=== PATIENT | female | born 1960 | race Caucasian/White ===

== ENCOUNTER 2024-11-21 09:59 | Outpatient (AMB) | payer OTHER, SELFPAY ==
--- NOTE | 2024-11-21 10:02 | AM.OFFWIN_ITS ---
Intake Vital Signs 11/21/24 10:07 Height 5 ft 2 in Weight 145 lb 6 oz BMI 26.6 BP 118/72 Blood Pressure Location Rt brachial Position Sitting Respiration 13 Pulse 80 Pulse Source Pulse Oximeter Temp 98.2 F Temp Source Oral Pulse Oximetry (%) 96 Oxygen Delivery Method Room Air Intake Visit Reasons: Cough /sinus infection Intake Note: Patient complaining of coughing, sinus, exhausted, and pressure headache x 1 month Patient Tobacco Use Status: Never used Tobacco Mineral Wool Insulation Supervisor Required: No Allergies Penicillins Allergy (Severe, Verified 11/21/24 10:24) Hives Medication List - Last Reconciled 11/21/24 by Carole Byrnes, RUG CLEANER HAND- metoprolol tartrate 25 mg PO BID rosuvastatin 20 mg PO QAM sertraline 150 mg PO DAILY Do you need a note to return to daycare/school/sports/work: No HPI HPI Comments History of Present Illness Details - The patient is a 64-year-old female wi th COPD presenting with cough and sinus congestion. - Symptoms have persisted for a month, i ncluding exhaustion and pressure headaches. - Initial improvement was noted after a course of prednisone Rx by PCP; however, symptoms returned with increased severity. - Current medications include inhalers ( Trelegy and a albuterol), which have not been effective in relieving symptoms. Has tessalon at home, taking w/o effect. - There is no history of fever or chills , and no antibiotics had been prescribed prior to this visit. - The patient is allergic to penicillin and typically requires higher doses of azithromycin to achieve symptom relief. Did not get flu vaccine this year. Physical Exam General: Awake, alert. No apparent distress Eyes: Sclera and conjunctiva clear bilaterally Nose: Nares yellow d/c, turbinates pale and edemaotus,+frontal and maxillary sinus tenderness with palpation bilaterally Ears: Tympanic membranes intact and clear bilaterally Throat: Moist mucosa membrane, pharynx within normal limits Cardiovascular: Regular rate and rhythm Respiratory: coarse ins/exp wheezes throughout, cough w/o distress Discussion Notes I discussed with the patient the likely diagnosis of concurrent sinusitis with an exacerbation of COPD, which would require antibiotic treatment alongside her current inhalers. Given her penicillin allergy, we decided on azithromycin at an adjusted higher dose, which matches her previous response to treatment. I advised continuing prednisone to manage airway inflammation, providing specific instructions for the dose. The importance of adhering to inhaler regimen was emp hasized, and I advised discontinuing ineffective medications. The patient was informed to seek further medical advice if symptoms worsen or fail to improve within 48 hours. She agreed with the plan. Assessment and Plan 1. Chronic Obstructive Pulmonary Disease (COPD): The patient's COPD is assessed to be exacerbated, likely due to sinusitis complications. Continued use of her inhalers is essential, alongside a course of prednisone to reduce inflammation. 2. Sinusitis: Given the patient's sympto ms and previous effective treatment responses, a diagnosis of sinusitis with prescribed azithromycin at a higher dose is appropriate, considering her penicillin allergy. 3. Sinus Cephalgia: Associated with sinu sitis, the patient's headache symptoms are expected to improve with antibiotic therapy. Ineffective cough treatments should be discontinued. Patient Instructions - Take azithromycin at the prescribed hi gher dosage for seven days. - Continue prednisone 1 tablet daily wit h food for five days. - Use inhalers consistently as prescribe d. - Discontinue any ineffective cough medi cations (tessalon) - Return for further evaluation if sympt oms do not improve in 48 hours or worsen at any time. Consent The patient provided consent for the treatment plan, which includes azithromycin and prednisone use. I discussed the risks and benefits of azithromycin in light of her allergy to penicillin, highlighting the effectiveness of the higher dosage. Alternatives and return precautions were communicated, with the patient expressing understanding and agreement with the proposed course of action. Patient was informed and verbally consented to the use of an ambient scribe for clinic note documentation during this visit. [facility] Social History Patient Tobacco Use Status: Never used Tobacco Physical Exam Vital Signs: Last Vital Signs Temp 98.2 F 11/21/24 10:07 Pulse 80 11/21/24 10:07 Resp 13 11/21/24 10:07 BP 118/72 11/21/24 10:07 Pulse Ox 96 11/21/24 10:07 Oxygen Delivery Method Room Air 11/21/24 10:07 BMI result Body Mass Index 26.6 Assessment & Plan Assessment & Plan (1) COPD (chronic obstructive pulmonary disease): Code(s): J44.9 - Chronic obstructive pulmonary disease, unspecified Qualifiers: COPD type: COPD with acute exacerbation Qualified Code(s): J44.1 - Chronic obstructive pulmonary disease with (acute) exacerbation (2) Acute bacterial sinusitis: Code(s): J01.90 - Acute sinusitis, unspecified; B96.89 - Other specified bacterial agents as the cause of diseases classified elsewhere Plan . Medications: New azithromycin 500 mg PO DAILY 7 days 7 tabs 0RF prednisone 50 mg PO DAILY 5 days 5 tabs 0RF Coding Level of Care Code Est Pt Level 4 (99418) Diagnoses Chronic obstructive pulmonary disease with acute exacerbation J44.1 COPD type: COPD with acute exacerbation Acute bacterial sinusitis J01.90; B96.89
[2024-11-21 10:07] VITALS: BP 118/72; PULSE 80; RESP 13; TEMP 36.8; O2SAT 96; BMI 26.6
--- OUTSIDE RECORDS SUMMARY | 2024-11-21 11:34 | XMS_ITS | Encounter Summary ---
Author Organization [employer] Address [address] [place] [address] Care Team Providers Care Nuclear Licensing Engineer Name Role Phone Autumn Burns Primary Care Provider Brittany Jernigan DO Primary Care Provider [phone] Reason for Visit * Reason Comments Med Refill Encounter Details Date Type Department Care Team (Late st Contact Info) Description 02/12/2024 Refill [place] [facility] [address] [place] [address] Sammie Gonzalez FNP Pure hypercholesterolemia, unspecified Social History Tobacco Use Types Packs/Day Years Used Date Smoking Tobacco: Every Day Cigarettes 0.3 49.4 Started: 1972; Last attempted to quit: 02/14/2022 Smokeless Tobacco: Never Comments:Quit for a year and started smoking again 1 or 2 a day prn Alcohol Use Standard Drinks/Week Comments Not Currently 0 (1 standard drink = 0.6 oz pur e alcohol) quit 35 years Housing Stability Answer Date Recorded What is your housing situation today? Not on ginny e 09/20/[address] you li ve. Do you have problems with any of the following? None of the above 09/20/2023 Food Insecurity Answer Date Recorded Within the past 12 months, y ou worried that your food would run out before you got money to buy more: Never True 07/24/2023 Within the past 12 months,th e food you bought just didn't last and you didn't have enough money to get more: Never True 07/2023 Transportation Answer Date Recorded In the past 12 months, has l ack of transportation kept you from medical appts, meetings, work or from getting things needed for daily living? No 07/24/2023 Utilities Answer Date Recorded In the past 12 months, has t he electric, gas, oil or water company threatened to shut off services in your home? No 07/24/2023 Depression Answer Date Recorded Patient Health Questionnaire-2 Score 0 10/22/2022 Comments Unknown Sex and Gender Information Value Date Recorded Sex Assigned at Female 09/04/2022 11:58 AM EST Legal Sex Female 8:40 PM EDT Gender Identity Female 09/04/2022 11:58 AM EST Sexual Orientation Straight 10/20/2022 12 :37 PM EST documented as of this encounter Plan of Treatment Not on file documented as of this encounter Visit Diagnoses Diagnosis Pure hypercholesterolemia, unspecified documented in this encounter Care Teams Nuclear Licensing Engineer Relationship Specialty Start Date End Date Autumn Burns PA PCP - General Family Medicine 08/24/23 03/19/24 Brittany Pearson DO [address] [place] [id number] PCP - General Family Medicine 03/20/24 documented as of this encounter
--- OUTSIDE RECORDS SUMMARY | 2024-11-21 11:34 | XMS_ITS | Encounter Summary ---
Author Organization [employer] Address [address] [place] [address] Care Team Providers Care Irrigationist Name Role Phone Brittany Pearson DO Primary Care Provider Reason for Visit * Reason Onset Date Comments Flu Symptoms 10/16/2024 Encounter Details Date Type Department Care Team (Late st Contact Info) Description 10/16/2024 Telephone [place] [facility] [address] [place] [address] Brittany Pearson DO [address] [place] [address] Flu Symptoms Social History Tobacco Use Types Packs/Day Years Used Date Smoking Tobacco: Some Days Cigarettes 0.3 49.4 Started: 1972; Last attempted to quit: 02/14/2022 Passive Smoke Exposure: Current Smokeless Tobacco: Never Comments:Quit for a year and started smoking again 1 or 2 a day prn Alcohol Use Standard Drinks/Week Comments Not Currently 0 (1 standard drink = 0.6 oz pur e alcohol) quit 35 years Alcohol Answer Date Recorded How often do you have a drink containing alcohol ? 0 03/20/2024 How many drinks containing a lcohol do you have on a typical day when you are drinking? 0 03/20/2024 How often do you have six or more drinks on one occasion? 0 03/20/2024 Housing Stability Answer Date Recorded What is your housing situation today? I have nigel ellis 03/20/[address] you li ve. Do you have problems with any of the following? None of the above 03/20/2024 Food Insecurity Answer Date Recorded Within the past 12 months, y ou worried that your food would run out before you got money to buy more: Never True 03/20/2024 Within the past 12 months,th e food you bought just didn't last and you didn't have enough money to get more: Never True 04/2024 Transportation Answer Date Recorded In the past 12 months, has l ack of transportation kept you from medical appts, meetings, work or from getting things needed for daily living? No 03/20/2024 Intimate Partner Violence Answer Date R ecorded Within the last year, have y ou been afraid of your partner or ex-partner? 2 03/20/2024 Within the last year, have y ou been humiliated or emotionally abused in other ways by your partner or ex-partner? 2 Within the last year, have y ou been kicked, hit, slapped, or otherwise physically hurt by your partner or ex-partner? 2 03/20/2024 Within the last year, have y ou been raped or forced to have any kind of sexual activity by your partner or ex-partner? 2 03/20/2024 Utilities Answer Date Recorded In the past 12 months, has t he electric, gas, oil or water company threatened to shut off services in your home? No 03/20/2024 Depression Answer Date Recorded Patient Health Questionnaire-2 Score 0 03/20/2024 Internet Access Answer Date Recorded Internet Access Q1 Yes 05/14/2024 Internet Access Q2 Not on file 05/14/2024 Comments No Sex and Gender Information Value Date Recorded Sex Assigned at Female 09/04/2022 11:58 AM EST Legal Sex Female 8:40 PM EDT Gender Identity Female 09/04/2022 11:58 AM EST Sexual Orientation Straight 10/20/2022 12 :37 PM EST Occupation Industry Job Start Date Job End Date Retired Not on file Not on file Not on file documented as of this encounter Miscellaneous Notes * Telephone Encounter - Mitra HIRO Santiago - 11/20/2024 2:44 PM EDT Patient seen early October with similar symptoms. Patient states she did feel a little better after taking prednisone and tessalon perles. Patient states that shortly after, she was busy with moving. Patient currently c/o nasal/head congestion. Patient c/o cough/wheezing, slight intermittent headache and ear pain on Left side. Patient states nasal drainage is clear, denies facial pain or pressure. Cough is mainly at night and rising in am. Patient states tessalon is no longer effective. Apap for headaches and nebulizer for wheezing with some effect. No fever noted, no recent sick contacts. Advised good fluid intake, sleep with HOB elevated and humidifier at night. Appointment scheduled with provider to [facility]. Patient will arrive 15 mins early for testing. Patient in agreement with plan. * Telephone Encounter - Tamie Lloyd - 11/20/2024 2:08 PM EDT Patient called stating I???m still not better, I still have the congestion and I think it???s going up into my sinuses now, I went to urgent care but they won???t take my insurance there, the symptoms are more intense now in the sinuses, I'm more wiped out, I'm doing my nebulizer so I'm bringing up my mucus but I don't know what else to do. Patient states she would like a call back with advice and if she should book an appointment, okay to leave detailed message on voicemail. Thank you! * Telephone Encounter - Miracle Bob LPN - 10/16/2024 11:47 AM EST Spoke with pt. She does not feel her symptoms are bad enough to require urgent care. She is comfortable waiting for her appointment tomorrow. * Telephone Encounter - Miracle Bob LPN - 10/16/2024 11:14 AM EST Left message for pt to call back. * Telephone Encounter - Connie Ruiz - 10/16/2024 11:03 AM EST Patient calling reporting sick symptoms. Symptom onset date: 10/03 Symptoms include: cough, shortness of breath, fatigue, and congestion or runny nose Patient denies sick contacts. Testing performed at home: covid test: negative on 10/09 In-person visit with provider scheduled for 10/17 with PSN. Telephone encounter routed to nursing triage for review; nursing to review and sign encounter if timeline is appropriate or modify plan if clinically necessary. Preferred phone number confirmed, ending in [phone]. If necessary, patient confirms that it is ok fornursing to leave detailed voicemail on this number. Patient to use sick door and arrive 15 minutes early documented in this encounter Plan of Treatment Not on file documented as of this encounter Visit Diagnoses Not on filedocumented in this encounter Care Teams Irrigationist Relationship Specialty Start Date End Date Brittany Pearson DO [address] [place] [phone] PCP - General Family Medicine 03/20/24 documented as of this encounter
--- OUTSIDE RECORDS SUMMARY | 2024-11-21 11:34 | XMS_ITS | Encounter Summary ---
Author Organization [employer] Address [address] [place] [address] Care Team Providers Care Roll Winder Name Role Phone Brittany Pearson DO Primary Care Provider [phone] Reason for Visit * Reason Onset Date Comments Med Refill 11/13/2024 Encounter Details Date Type Department Care Team (Late st Contact Info) Description 11/13/2024 Refill [place] [facility] [address] [place] [address] Brittany Pearson DO [address] [place] [address] Active asthma Social History Tobacco Use Types Packs/Day Years [...] encounter Miscellaneous Notes * Telephone Encounter - Terra Cesar, RMA - 11/13/2024 5:08 PM EST Images from the original note were not included. Jerica Davis [facility] (supporting [employer])5 days ago Refills have been requested for the following medications: albuterol (Ventolin HFA) 108 (90 Base) MCG/ACT inhaler [Sammie Gonzalez] Preferred pharmacy: [id number] - [place], [place] - [address] [place] [address] Delivery method: Pickup documented in this encounter Plan of Treatment Not on file documented as of this encounter Visit Diagnoses Diagnosis Active asthma Unspecified asthma documented in this encounter Care Teams Roll Winder Relationship Specialty Start Date End Date Brittany Pearson DO [address] [place] [id number] PCP - General Family Medicine 03/20/24 documented as of this encounter
--- OUTSIDE RECORDS SUMMARY | 2024-11-21 11:34 | XMS_ITS | Encounter Summary ---
Author Organization [employer] Address [address] [place] [address] [address] [place] [address] Care Team Providers Care Application Processor Name Role Phone Sue Mann Primary Care Provider Un available Autumn Burns Primary Care Provider Brittany Jernigan DO Primary Care Provider [phone] Encounter Details Date Type Department Care Team (Late st Contact Info) Description 12/14/2022 Orders Only [facility] [address] [place] [address] Provider, MD Rudi Social History Tobacco Use Types Packs/Day Years Used Date Smoking Tobacco: Former Cigarettes 0.5 49.4 1 973 - 02/14/2022 Smokeless Tobacco: Never Alcohol Use Standard Drinks/Week Comments Not Currently 0 (1 standard drink = 0.6 oz pur e alcohol) quit 35 years Depression Answer Date Recorded Patient Health Questionnaire-2 Score 0 10/22/2022 Comments Unknown Sex and Gender Information Value Date Recorded Sex Assigned at Female 09/04/2022 11:58 AM EST Legal Sex Female 8:40 PM EDT Gender Identity Female 09/04/2022 11:58 AM EST Sexual Orientation Straight 10/20/2022 12 :37 PM EST COVID-19 Exposure Response Date Recorded In the last 10 days, have yo u been in contact with someone who was confirmed or suspected to have Coronavirus/COVID-19? No / Unsure 12/12/2022 8:00 AM EDT documented as of this encounter Plan of Treatment Not on file documented as of this encounter Procedures Procedure Name Priority Date/Time Associated Diagnosis Comments HM COLONOSCOPY Routine 12/14/2022 documented in this encounter Results * Hm Colonoscopy (12/14/2022) us Historical Provider HEALTH MAINTENANCE Final Result documented in this encounter Visit Diagnoses Not on filedocumented in this encounter Care Teams Application Processor Relationship Specialty Start Date End Date Sue Mann FNP PCP - General Family Medicine 09/18/22 08/23/23 Autumn Burns PA PCP - General Family Medicine 08/24/23 03/19/24 Brittany Pearson DO [address] [place] [id number] PCP - General Family Medicine 03/20/24 documented as of this encounter
--- OUTSIDE RECORDS SUMMARY | 2024-11-21 11:34 | XMS_ITS | Clinical Summary ---
Author Organization [employer] Address [address] [place] [address] [address] [place] [address] Care Team Providers Care Experimental Outboard Motors Mechanic Name Role Phone Brittany Pearson DO Primary Care Provider [phone] Allergies Active Allergy Reactions Criticality Noted Date Comments Atorvastatin Rash Low 09/18/2022 Penicillins 09/04/2022 Sulfadiazine Hives 09/04/2022 Medications diphenhydrAMIN E-APAP, sleep, (TYLENOL PM EXTRA STRENGTH PO) Take 1 tablet by mouth if needed each day. Active loratadine-pse udoephedrine ER (Claritin-D 24 Hour) 10-240 MG 24 hr tablet Take 1 tablet by mouth in the morning. Active ascorbic acid (Vitamin C) 1000 MG tablet Take 1 tablet by mouth in the morning. Active metoprolol tartrate (Lopressor) 25 MG tablet Take 25 mg by mouth. 01/09/20 23 Active Trelegy Ellipta 100-62.5-25 MCG/ACT aerosol powder INHALE 1 PUFF DAILY AT THE SAME TIME EVERY DAY 11/25/19 24 Active rosuvastatin (Crestor) 20 MG tabletIndicati ons:Pure hypercholester olemia, unspecified TAKE 1 TABLET BY MOUTH EVERY DAY IN THE MORNING 90 tablet 1 02/14/20 24 Active sertraline (Zoloft) 100 MG tabletIndicati ons:Anxiety Take 0.5 tablets (50 mg) by mouth Once per day for 14 days, THEN 1 tablet (100 mg) Once per day for 14 days, THEN 1.5 tablets (150 mg) Once per day. 111 tablet 08/30/20 24 2024 Active ipratropium-al buterol (Duo-Neb) 0.5-2.5 mg/3 mL nebulizer solutionIndica tions:Active asthma Take 3 mL by nebulization every 6 (six) hours. 180 mL 11 10/11/19 25 2025 Active nicotine polacrilex (Nicorette) 2 MG gumIndications :Cigarette nicotine dependence with nicotine-induc ed disorder CHEW 1 PIECE OF GUMEVERY 2 HOURS NEEDED FOR 12 WEEKS DO NOT SWALLOW 100 each 11/09/19 Active albuterol (Ventolin HFA) 108 (90 Base) MCG/ACT inhalerIndicat ions:Active asthma Inhale 1 puff every 4 (four) hours if needed for wheezing or shortness of breath. 18 g 2 11/14/19 25 2024 Active albuterol (Ventolin HFA) 108 (90 Base) MCG/ACT inhalerIndicat ions:Active asthma INHALE 1 PUFF BY MOUTH EVERY 4 HOURS NEEDED FOR WHEEZE OR FOR SHORTNESS OF BREATH 18 g 2 06/04/20 23 2024 Discontinued(R eorder (will not trigger notification to Pharmacy)) benzonatate (Tessalon) 100 MG capsuleIndicat ions:Acute cough,Upper respiratory infection, acute Take 1 capsule (100 mg) by mouth if needed in the morning, at noon, and at bedtime for cough. Do not crush or chew. 42 capsule 1 10/17/19 25 2024 predniSONE (Deltasone) 20 MG tabletIndicati ons:Acute cough,Upper respiratory infection, acute Take 1 tablet (20 mg) by mouth 3 times daily for 5 days, THEN 1 tablet (20 mg) 2 times daily for 5 days, THEN 1 tablet (20 mg) Once per day for 5 days. 30 tablet 10/17/19 25 2024 nicotine polacrilex (Nicorette) 2 MG gumIndications :Cigarette nicotine dependence with nicotine-induc ed disorder CHEW 1 PIECE OF GUMEVERY 2 HOURS NEEDED FOR 12 WEEKS DO NOT SWALLOW 100 each 10/18/19 25 2024 Discontinued Active Problems Problem Noted Date Diagnosed Date Acute cough 10/17/2024 Upper respiratory infection, acute 10/17/2024 Generalized pruritus 03/20/2024 Assessment & Plan (03/20/2024 4:29 PM EDT): No rash to explain symptoms Labs as below Sleep apnea 09/16/2023 Assessment & Plan (09/16/2023 10:27 AM EST): States she snores at night; her partner has told her. Has been having disordered sleep, wakes up almost nightly as well. Has not had a sleep study done yet; she cancelled the appt. I have put a referral in; we will try to get her one at home. Sleep disturbance 10/22/2022 Assessment & Plan (10/22/2022 2:47 PM EST): Likely in part due to cervical spine issues. Uses Tylenol PM with good effect and declines trial of any other meds; tolerates this well and takes as needed. Aware of potential side effects from sleep aid and will monitor for nay new issues. RTC as needed. SVT (supraventricular tachycardia) 10/22/2022 Assessment & Plan (03/20/2024 4:23 PM EDT): Stable on metoprolol Assessment & Plan (10/23/2022 6:32 AM EST): Discussed treatment options such as beta frieda or referral to cardiology for further eval and treatment given that she is symptomatic with palpitations. She states she has been living with these papitations for years and they are tolerable without significant concomitant symptoms; declines medical therapies unless she has to and declines cards referral at present. RTC precautions reviewed as well as when to seek emergency medical attention. Will continue to reeval. Fibromyalgia 08/31/2022 Assessment & Plan (04/28/2024 2:20 PM EDT): Discussed multiple options for pain management. - will pursue approval for massage therapy as this has the potential to improve fibromyalgia - Will start duloxetine for pain as well as covering her anxiety. Discussed cross-taper with sertraline. History of bronchitis 08/31/2022 Active asthma 08/31/2022 Anxiety 08/31/2022 Cervical disc disorder with myelopathy Assessment & Plan (03/20/2024 4:28 PM EDT): Cervical disc disease s/p multiple surgeries with worsening pain and upper extremity radicular symptoms Refractory to daily home stretches/exercises and PT 12/24/23 - 01/16/24 Stopped PT d/t injury Advised that given radiculopathy and lack of improvement MRI is recommended to evaluate for nerve root impingement, after which she will need to follow up with neurosurgery and/or pain management Flexeril ineffective; trial methocarbamol as needed at night to aid with sleep Assessment & Plan (11/17/2023 12:28 PM EST): Patient presents today with ongoing cervical spine and right shoulder pain. Has had three disc replacements in the past in two different surgeries. No rashes noted. No obvious injuries/abnormal movements. No new changes to daily routine. Was goofing around with her grandchildren the other day. Does continue to be able to perform her daily activities without difficulty. She has used Tylenol and Flexeril, Flexeril provided no relief but Tylenol has been working well. PE revealed TTP over the cervical spine and paraspinal muscles, as well as diffusely over the right shoulder. Range of motion limited with head rotation to the right, but intact in other planes. Right shoulder ROM intact. Referred to PT, ordered cervical spine and right shoulder x-rays, and sent Meloxicam for one week to use once daily as needed. Discussed red flag s/s to go to the ER. Follow up as needed. Assessment & Plan (10/22/2022 2:45 PM EST): Dr Davenport will not see pt to est care; will send TE to referrals regarding finding another provider for her to see. Pt agreeable. Paresthesia of arm 08/31/2022 Assessment & Plan (10/22/2022 2:45 PM EST): As above. High cholesterol 08/31/2022 Assessment & Plan (03/20/2024 4:29 PM EDT): On rosuvastatin 20 mg daily Assessment & Plan (09/16/2023 10:28 AM EST): Ordered lipid panel for today. Will continue with current dose of Crestor if lipid panel is normal. Assessment & Plan (10/23/2022 6:35 AM EST): LDL recently at 106, has been lower in the past. Tolerating statin and reports compliance. Encouraged efforts to improve diet and activity to help drive LDL down further; HDL elevated and cardioprotective so will recheck before next visit and readdress as needed if remains elevated. Aware LDL goal is less than 100. Declines further nutritional support. . Stage 3 chronic kidney disease 08/31/2022 Assessment & Plan (03/20/2024 4:24 PM EDT): Last labs Cr 1.0 egfr 60. Due for repeat Assessment & Plan (10/23/2022 6:34 AM EST): No underlying risk factors except for h/o NSAID use which she currently denies. Advised proper hydration, mineralization of potential for comorbidities that may also negatively impact kidney function. Pt declines nephrology referral requesting continued monitoring but is amenable to referral if kidney function declines further. Will continue to monitor. COPD with acute exacerbation 08/31/2022 Assessment & Plan (03/20/2024 4:22 PM EDT): Mild to moderate with intermittent symptoms of wheezing Encouraged to continue working on tobacco cessation Following with pulmonology Assessment & Plan (09/16/2023 10:27 AM EST): Ongoing. Followed by Dr Seay. State she does not believe that the Breo is working. Has a follow up with Dr Seay but does not know what date at this point. Assessment & Plan (10/22/2022 2:48 PM EST): Stable with resolution of sinus symptoms; continue current plan. Contact info given for fretted instrument repairer so she may call to schedule appt to est care. Ulcerative colitis 08/31/2022 Assessment & Plan (03/20/2024 4:23 PM EDT): History of ulcerative colitis without symptoms or known active lesions. Overweight (BMI 25.0-29.9) 08/31/2022 Assessment & Plan (03/20/2024 4:32 PM EDT): Patient interested in weight management program History of alcohol abuse 08/31/2022 Nicotine dependence with nicotine-induced disord er 08/31/2022 Assessment & Plan (03/20/2024 4:29 PM EDT): Encouraged to continue cessation efforts Assessment & Plan (09/16/2023 10:29 AM EST): States she is down to 5 cigs/day. States she is continuing to want to quit and the nicotine gum helps. We have reordered it with refills. We are encouraging her to quit. Former smoker 08/31/2022 Assessment & Plan (10/22/2022 2:48 PM EST): Remains abstinent. Osteopenia 08/31/2022 Resolved Problems Problem Noted Date Diagnosed Date Resolved Date Osteoarthritis 08/31/2022 08/31/2022 Smoker 08/31/2022 08/31/2022 Encounters Date Type Department Care Team Description 11/21/[address] [address] Brittany Pearson DO Care Coordination 11/13/[address] [address] Brittany Pearson DO Active asthma 11/09/[address] [address] Brittany Pearson DO Cigarette nicotine dependence with nicotine-induced disorder 10/17/2024 9:20 AM EST Office Visit [address] [address] Mitra Vigil FNP-C Upper respiratory infection, acute (Primary Dx); Acute cough; COPD with acute exacerbation (CMS/HCC) 10/17/2024 Refill [facility] [address] [place] [address] Brittany Pearson, DO Cigarette nicotine dependence with nicotine-induced disorder 10/16/2024 Telephone [facility] [address] [place] [address] Brittany Pearson, DO Flu Symptoms 10/10/2024 Telephone [facility] [address] [place] [address] Brittany Pearson, DO from Last 3 Months Immunizations Name Administration Dates Next Due Influenza Injectable Quadriv alant Preservative Free IIV4 MDCK 05/25/2019 Influenza injectable quadriv alent preservative free 06/02/2018,12/30/2017,06/29/2016 Influenza, IIV3, injectable 06/25/2020, 8 Pneumococcal Conjugate PCV 13 06/25/2020 TD (adult), 2 Lf tetanus tox oid, preservative free, adsorbed 09/13/2013 Zoster, Recombinant 05/17/2020,06/13/2019 Social History Tobacco Use Types Packs/Day Years Used Date Smoking Tobacco: Some Days Cigarettes 0.3 49.4 Started: 1972; Last attempted to quit: 02/14/2022 Passive Smoke Exposure: Current Smokeless Tobacco: Never Tobacco Cessation:Ready to Q uit: Not Asked; Counseling Given: Not Answered Comments:Quit for a year and started smoking [...] the past 12 months, has t he ANPI, gas, oil or water [employer] threatened to shut off services in your [...] file Not on file Not on file Last Filed Vital Signs Vital Sign Reading Time Taken Comments Blood Pressure 123/90 10/17/2024 9:29 AM EST Pulse 86 10/17/2024 9:29 AM EST Temperature 36.9 ??C (98.5 ??F) 10/17/2024 9:29 AM ES T Respiratory Rate 16 12/12/2022 8:14 AM EDT Oxygen Saturation 96% 10/17/2024 9:29 AM EST Inhaled Oxygen Concentration - - Weight 64.4 kg (142 lb) 10/17/2024 9:29 AM EST Height 157.5 cm (5' 2 ) 10/17/2024 9:29 AM EST Body Mass Index 25.97 10/17/2024 9:29 AM EST Plan of Treatment Health Maintenance Due Date Last Done Comments CT Colonography 1960 FIT DNA/Cologuard 1960 FIT 1960 FOBT 1960 HIV Screening 1960 Sigmoidoscopy 1960 Hepatitis C Screening 1978 Pap Smear 1981 Cervical Cancer Screening 1990 HPV/Cotest 1990 DTaP/Tdap/Td Vaccines (1 - Tdap) 09/14/2013 09/13/2013 Dental Oral Exam 09/12/2016 03/12/2016, 01/12/2014 Dental Prophylaxis 01/22/2017 07/24/2016 RSV Patients and Patients Aged 60 years or older (1 - Risk 60-74 years 1-dose series) 2020 Pneumococcal Vaccine: 50+ Years (2 of 2 - PPSV23) 08/20/2020 06/25/2020 COVID-19 Vaccine ( - 2023- season) 2024 Influenza Vaccine (#1) 2024 , 05/25/2019, 06/16/2018, Additional history exists Dental X-Ray: Bitewings 02/02/2025 02/02/20 24, 03/12/2016, 01/12/2014 Alcohol/Substance Use Screening 03/20/2025 03/20/2024 Depression Screening 03/20/2025 03/20/2024, 03/20/20 24 SDOH Screening 03/20/2025 03/20/2024 Tobacco Screening 10/17/2025 10/17/2024 Mammogram 05/23/2026 05/23/2024, 04/14/2024 Dental X-Ray: Full Mouth 02/02/2027 02/02/2024, 0510/2013 Lipid Panel 09/16/2028 09/16/2023, 09/15, 06/30/2022, Additional history exists Colonoscopy 12/14/2032 12/14/2022 Colorectal Cancer Screening 12/14/2032 Zoster Vaccines Completed 05/17/2020, 06/13/2019 HIB Vaccines Aged Out No longer eligi ble based on patient's age to complete this topic HPV Vaccines Aged Out No longer eligi ble based on patient's age to complete this topic Hepatitis A Vaccines Aged Out No long er eligible based on patient's age to complete this topic Hepatitis B Vaccines Aged Out No long er eligible based on patient's age to complete this topic IPV Vaccines Aged Out No longer eligi ble based on patient's age to complete this topic Meningococcal Vaccine Aged Out No jane geraldine eligible based on patient's age to complete this topic RSV under 20 months Aged Out No longe r eligible based on patient's age to complete this topic Rotavirus Vaccines Aged Out No longer eligible based on patient's age to complete this topic Procedures Procedure Name Priority Date/Time Associated Diagnosis Comments POCT INFLUENZA A/B Routine 10/17/2024 12 :21 PM EST Acute cough POCT RAPID COVID ANTIGEN Routine 10/17/2024 12:21 PM EST Acute cough BI MAMMOGRAM DIAGNOSTIC RIGHT Routine 05/23/2024 1:51 PM EDT Abnormal mammogram of right breast INTRAORAL - COMPLETE SERIES OF RADIOGRAPHIC IMAGES Routine 02/02/2024 10:00 AM EDT LIPID PANEL, STANDARD Routine 09/16/2023 9:56 AM EST High cholesterol HM COLONOSCOPY Routine 12/14/2022 PROPHYLAXIS - ADULT Routine 07/24/2016 1 2:00 AM EST PERIODIC ORAL EVALUATION - ESTABLISHED PATIENT Routine 03/12/2016 12:00 AM EDT from Last 3 Months or Most Recently Relevant to Health Maintenance Results * POCT Rapid COVID Ag (10/17/2024 12:21 PM EST) Rapid COVID Ag Negative Swab 10/17/2024 12:2 1 PM EST Mitra Cook DISTRIBUTOR OPERATOR-C POINT OF CARE TEST ENTER/EDIT ORDERABLES Final Result * POCT Influenza A/B manually resulted (10/17/2024 12:21 PM EST) Rapid Influenza A Ag Negative Negative, Indeterminate Rapid Influenza B Ag Negative Negative, Indeterminate Swab 10/17/2024 12:2 1 PM EST Mitra Cook DISTRIBUTOR OPERATOR-C POINT OF CARE TEST ENTER/EDIT ORDERABLES Final Result * Mammogram Diagnostic Right (05/23/2024 1:51 PM EDT) Anatomical Region Laterality Modality Breast Right Mammography 05/23/2024 1:51 PM EDT Narrative 05/23/2024 2:24 PM EDT PROCEDURE: MM Digital Mammo Unilat Right INDICATION: Abnormal screening. Single view asymmetry right breast. Maternal history of breast cancer at 54. COMPARISON: Back to 06/17/2021. TECHNIQUE: Full field RIGHT digital ML and spot compression CC 3D tomosynthesis. Computer-aided detection (CAD) was utilized in the interpretation of this study. DENSITY: There are scattered areas of fibroglandular density. FINDINGS: Single view asymmetry effaces on spot compression imaging and is not visualized on the other views. IMPRESSION: No suspicious findings. RECOMMENDATION: Annual mammographic screening BI-RADS: 1 (Negative) Lay letter mailed to patient WSN: [id number] Ordering Physician: Brittany Pearson Dictated By: ?Herbie Han MD Dictated Date/Time: ?05/23/24 2:21 pm Reviewed By: ?Hebrie Han MD Signed By: ? Herbie Han MD Signed Date/Time: ? 05/23/24 2:21 pm Transcribed By: ? CSB Manager Video Games Date/Time: ? 05/23/24 2:18 pm Birads: Procedure Note [place], Image - 05/23/2024 PROCEDURE: MM Digital Mammo Unilat Right INDICATION: Abnormal screening. Single view asymmetry right breast. Maternal history of breast cancer at 54. COMPARISON: Back to 06/17/2021. TECHNIQUE: Full field RIGHT digital ML and spot compression CC 3Dtomosynthesis. Computer-aided detection (CAD) was utilized in the interpretation of thisstudy. DENSITY: There are scattered areas of fibroglandular density. FINDINGS: Single view asymmetry effaces on spot compression imaging and isnot visualized on the other views. IMPRESSION: No suspicious findings. RECOMMENDATION: Annual mammographic screening BI-RADS: 1 (Negative) Lay letter mailed to patient WSN: [id number] Ordering Physician: Brittany Pearson Dictated By: Herbie Han MD Dictated Date/Time: 05/23/24 2:21 pm Reviewed By: Herbie Han MD Signed By: Herbie Han MD Signed Date/Time: 05/23/24 2:21 pm Transcribed By: CSB Manager Video Games Date/Time: 05/23/24 2:18 pm Birads: Brittany Pearson DO IMG BI PROCEDURES Final Result * (ABNORMAL) Lipid panel (09/16/2023 9:56 AM EST) Cholesterol, Total 202(H) (<200) MG/DL [facility] Triglyceride (mg/dL) in Serum/Plasma 125 (<150) MG/DL [facility] HDL Cholesterol 80 (>39) MG/DL [facility] LDL Cholesterol, Calculated 97 (0-130) MG/DL [facility] Non HDL Chol. (LDL+VLDL) 122 (<160) MG/DL [facility] Comment: Testing performed or reported by [facility], a Service of [facility], [address] [place] [address] Yevgeniy Man MD, Nail Assembly Machine Operator [facility]# [id number] Blood Venous blood specimen / Unknown 09/16/2023 9:56 AM EST 09/16/2023 9:57 AM EST Autumn CALVERT LAB BLOOD ORDERABLES Final Resul t [facility] [address] [place] [address] * Hm Colonoscopy (12/14/2022) Historical Provider HEALTH MAINTENANCE Final Result from Last 3 Months or Most Recently Relevant to Health Maintenance Insurance [facility] C3 DENTAL-[facility] MEDICAID STAND ADULT Care Teams Experimental Outboard Motors Mechanic Relationship Specialty Start Date End Date Brittany Pearson DO [address] [place] [id number] PCP - General Family Medicine 03/20/24
--- OUTSIDE RECORDS SUMMARY | 2024-11-21 11:34 | XMS_ITS | Patient Health Record ---
Author Organization Rickey Chanel MD Address [address] [place] [address] [place] [id number] Care Team Providers Care Erp Engineer Name Role Phone Dr. Pilo Leiva Primary Care Provider Unavail able Rickey Chanel Unavailable [phone] Reason For Referral No Information Plan Of Treatment No Information
--- OUTSIDE RECORDS SUMMARY | 2024-11-21 11:34 | XMS_ITS | Encounter Summary ---
Author Organization [employer] Address [address] [facility] [address] [place] [address] Care Team Providers Care Criminal Defense Attorney Name Role Phone Brittany Pearson DO Primary Care Provider [phone] Reason for Visit * Reason Comments Med Refill Encounter Details Date Type Department Care Team (Late st Contact Info) Description 11/09/2024 Refill [place] [facility] [address] [place] [address] Brittany Pearson DO [address] [place] [address] Cigarette nicotine dependence with nicotine-induced disorder Social History Tobacco Use Types Packs/Day Years [...] on file documented as of this encounter Plan of Treatment Not on file documented as of this encounter Visit Diagnoses Diagnosis Cigarette nicotine dependence with nicotine-induced disorder documented in this encounter Care Teams Criminal Defense Attorney Relationship Specialty Start Date End Date Brittany Pearson DO [address] [place] [id number] PCP - General Family Medicine 03/20/24 documented as of this encounter
== END 2024-11-21 10:31 | disposition home or self-care (01) ==
PROVIDERS: Visit Provider Nurse Practitioner Family
DX: J44.1 Chronic obstructive pulmonary disease with (acute) exacerbation (principal); J01.90 Acute sinusitis, unspecified; B96.89 Other specified bacterial agents as the cause of diseases classified elsewhere